=== PATIENT | male | born 1965 | race Caucasian/White ===

== ENCOUNTER 2017-10-02 17:55 | Emergency (ER) | payer OTHER ==
[2017-10-02 18:06] VITALS: BP 117/97
--- NOTE | 2017-10-02 18:20 | EDPHY ---
H & P Time Seen by Provider: 10/02/17 17:59 HPI/ROS: HPI Hard to awake, low pulse oximetry reading. 51-year-old male, history of down syndrome and sleep apnea. With his care provider from the [facility]. Per care provider patient was difficult to awake prior to arrival and had a pulse oximetry reading of 47%. The care provider states that now he appears to be at his baseline mentation and activity. Thinks that the pulse oximetry reading earlier may have been erroneous. No history of fever or cough. No difficulty breathing. No other complaints or abnormalities according to care provider. ROS: Review of systems obtained through care provider. Constitutional: No fever, no chills. As above. Eyes: No discharge. No changes in vision. ENT: No sore throat. No nasal congestion or rhinorrhea. Respiratory: No cough. No shortness of breath. Cardiac: No chest pain, no palpitations. Gastrointestinal: No abdominal pain, no vomiting, no diarrhea. Genitourinary: No hematuria. No dysuria or increased frequency with urination. Musculoskeletal: No back pain. No neck pain. No myalgias or arthralgias. Skin: No rashes. Neurological: No headache. No focal weakness or altered sensation. Past medical history: Else high MRSA dementia, Down syndrome, mental retardation, seizure disorder, sleep apnea on CPAP. Social history: No smoking. No alcohol. As above. Physical Exam: General Appearance: Alert, he does not appear in distress. Patient is nonverbal. This patient appears generally well-hydrated and well-nourished. Eyes: Pupils equal and round no pallor or injection. No lid edema, erythema or injection. ENT, Mouth: Mucous membranes are moist. No respiratory stridor. Respiratory: There are no retractions, lungs are clear to auscultation with good air movement bilaterally. No tachypnea. Cardiovascular: Regular rate and rhythm. No murmur. Neurological: Baseline. Skin: Warm and dry, no rashes. Musculoskeletal: Neck is supple and nontender. Psychiatric: No agitation. Database: EKG: Imaging: Chest x-ray AP portable; the cardiac mediastinal silhouette is unremarkable. No evidence of infiltrate or pneumothorax. Left basilar atelectasis. No acute cardiopulmonary disease process noted. Interpreted by me. Procedures: Emergency department course: Pulse oximetry obtained here 99-100% on room air. Patient placed on a monitor. Chest x-ray to be obtained. Care provider feels that low pulse oximetry was likely erroneous. 7:00 p.m., patient re-evaluated. The patient has been maintaining pulse oximetries in the mid to high 90s on room air. Currently sleeping, he is arousable, pulse oximetry 96% while sleeping. Chest x-ray is unremarkable. Results of this study discussed with the caregiver. I feel at this time he is safe for discharge and resuming of his normal care. Care provider feels comfortable with this. I discussed follow-up through his primary care physician. Return to emergency department precautions were reviewed. All of his questions were answered. The patient was discharged in good condition with his care provider. Differential Diagnosis: The differential diagnosis on this patient includes but is not limited to history of down syndrome and sleep apnea. Pneumonia, pneumothorax, upper airway obstruction, aspiration pneumonitis, pulmonary embolism unlikely. This represents a partial list of diagnoses considered. These considerations are based on history, physical exam, past history, reassessment and diagnostic testing. Smoking Status: Never smoked Constitutional: Initial Vital Signs Temperature (C) 36.6 C 10/02/17 17:57 Respiratory Rate 16 10/02/17 17:57 Blood Pressure 117/97 H 10/02/17 17:57 O2 Sat (%) 100 10/02/17 17:57 O2 Delivery Mode Room Air Allergies/Adverse Reactions: latex Allergy (Unknown, Verified 04/24/16 11:22) Home Medications: Medication Instructions Recorded Carbamide Peroxide [Debrox Ear 1 angelika EACHEAR DAILY 03/30/15 drops (*)] Ciclopirox Olamine [Loprox] 1 applic TP TUTH 03/30/15 Donepezil HCl [Aricept 5 MG (*)] 5 mg PO HS 03/30/15 Levothyroxine [Synthroid 100 mcg 100 mcg PO DAILY06 03/30/15 (*)] Loratadine [Claritin 10 mg] 10 mg PO DAILY 03/30/15 Memantine HCl [Namenda Xr] 28 mg PO DAILY 03/30/15 Mineral Oil/Petrolatum,White 1 angelika TP BID 03/30/15 [Eucerin Cream (*)] Naphazoline HCl/Pheniramine 1 - 2 drop OP TID 03/30/15 [Opcon-A Eye Drops] Tamsulosin HCl [Flomax 0.4 MG (*)] 0.4 mg PO HS 03/30/15 levETIRAcetam [Keppra 500 mg (*)] 500 mg PO BID #60 tab 04/01/15 Finasteride 01/18/16 Medical Decision Making - Diagnostics Imaging Results: Imaging Impressions Chest X-Ray 10/02/17 18:21 Impression: Streaky left basilar opacities with volume loss suggesting atelectasis. Departure - Departure Disposition: Home, Routine, Self-Care Clinical Impression: History of Down syndrome, Sleep related hypoxia Condition: Good Instructions: Sleep Apnea (DC) Additional Instructions: Read and follow provided instructions. Follow-up with your primary care physician in 1-2 days for re-evaluation. Continue CPAP at night. Return to the emergency department for worsening symptoms, low pulse oximetry or other serious concerns. Referrals: SERGE ROGEL [Primary Care Provider] - As per Instructions
== END 2017-10-02 19:17 | disposition home or self-care (01) ==
DX: G47.34 Idiopathic sleep related nonobstructive alveolar hypoventilation (principal); Q90.9 Down syndrome, unspecified; Z91.040 Latex allergy status